=== PATIENT | female | born 2000 | race Caucasian/White ===

== ENCOUNTER 2022-04-13 15:17 | Emergency (ER) | payer OTHER ==
[~2022-04-13] VITALS: Ht 165.1 cm; Wt 54.4 kg
--- NOTE | 2022-04-13 18:00 | NUR ---
Patient discharged to law enforcement in stable condition. Written and verbal after care instructions given. Patient verbalizes understanding of instruction.
[2022-04-13 18:57] VITALS: BP 110/65
== END 2022-04-13 18:58 ==
LOC: ER 15:19
DX: M25.532 Pain in left wrist (principal)